=== PATIENT | female | born 1975 | race Caucasian/White ===

== ENCOUNTER 2023-04-03 03:10 | Emergency (ER) | payer OTHER, MEDICAID ==
[~2023-04-03] VITALS: Ht 165.1 cm; Wt 80.0 kg
[~2023-04-03 03:10] MED LIST: NORPTMEDS CO
[2023-04-03 03:59] LABS: Basophils # (auto) 0 10 ^3/uL (0-0.2); Basophils % (auto) 0.3 % (0.0-2.0); Eosinophils # (auto) 0.2 10 ^3/uL (0-0.8); Hematocrit 38.8 % (36.0-46.0); Hemoglobin 13.2 g/dL (12.2-16.2); Lymphocytes # (auto) 2.3 10 ^3/uL (0.4-5.4); Mean Corpuscular Hemoglobin 29.5 pg (28.0-32.0); Mean Corpuscular Hgb Conc. 34.1 g/dL (32.0-36.0); Mean Corpuscular Volume 86.5 fL (80.0-100.0); Monocytes # (auto) 0.6 10 ^3/uL (0-1.3); Monocytes % (auto) 10.6 % (0.0-12.0); Neutrophils # (auto) 2.4 10 ^3/uL (1.6-8.6); Neutrophils % (auto) 44.1 % (37.0-80.0); Nucleated Red Blood Cells % 0.1 %; Red Blood Cells 4.48 10^6/uL (4.0-5.20); White Blood Cell 5.5 10^3/uL (4.4-10.8)
[2023-04-03 04:15] LABS: Alanine Aminotransferase 17 U/L (7-40); Albumin 4.4 g/dL (3.2-4.8); Alkaline Phosphatase 83 U/L (46-116); Anion Gap 6 (5-15); Aspartate Aminotransferase 15 U/L (13-40); BUN/Creatinine Ratio 12.9 (10.0-20.0); Bilirubin, Total 0.3 mg/dL (0.2-1.0); Blood Urea Nitrogen 9 mg/dL (9-23); Calcium 9.4 mg/dL (8.7-10.4); Carbon Dioxide 25 mmol/L (20-30); Chloride 110 mmol/L (98-107); Glucose 100 mg/dL (74-106); Magnesium 1.9 mg/dL (1.6-2.6); Potassium 3.8 mmol/L (3.5-5.1); Sodium 141 mmol/L (136-145)
[2023-04-03 04:16] LABS: Total Protein 7.1 g/dL (5.7-8.2)
[2023-04-03 08:00] VITALS: PULSE 75; RESP 18; O2SAT 99
[2023-04-03 08:05] VITALS: TEMP 97.9
[2023-04-03 08:17] LABS: Urine Bacteria FEW /hpf (None Seen); Urine Blood Negative /uL (Negative); Urine Clarity Clear (Clear); Urine Protein, UAD Negative (Negative); Urine Specific Gravity 1.009 (1.001-1.035); Urine Urobilinogen Normal (Negative); Urine WBC 15 /hpf (0 - 5); Urine pH 7.5 (5.0-8.0)
[2023-04-03 08:18] LABS: Urine Color Straw (Yellow)
[2023-04-03 08:38] LABS: Amphetamine Screen, Urine Neg (NEGATIVE); Barbiturate Scree,Urine Neg (NEGATIVE); Benzodiazephine Screen, Urine Neg (NEGATIVE); Cannabinoid Screen, Urine Neg (NEGATIVE); Cocaine Screen, Urine Neg (NEGATIVE); Opiate Scree,Urine Neg (NEGATIVE); Phencyclidine Screen, Urine Neg (NEGATIVE)
[2023-04-03] MEDS ORDERED: ACETAMINOPHEN 325 MG TAB PO ONE (10:30)
[2023-04-03] MEDS ORDERED: IOHEXOL 350 MG/ML 100ML IJ ONE (13:25)
[2023-04-03 15:10] LABS: INR 1.08 (0.9-1.15); Prothrombin Time 11.3 sec (9.3-11.8)
[2023-04-03] MEDS ORDERED: NAPR-1334 PO (15:47)
[2023-04-03] MEDS ORDERED: NITR-87 PO (15:47)
[2023-04-03 16:00] VITALS: BP 122/86; PULSE 85; RESP 19; O2SAT 99
== END 2023-04-03 17:44 | disposition home or self-care (01) ==
LOC: ER 03:10
DX: E04.1 Nontoxic single thyroid nodule (principal); R10.2 Pelvic and perineal pain; R00.2 Palpitations; R09.1 Pleurisy; F41.9 Anxiety disorder, unspecified; J45.909 Unspecified asthma, uncomplicated; E78.5 Hyperlipidemia, unspecified; Z90.710 Acquired absence of both cervix and uterus; Z90.89 Acquired absence of other organs; Z88.6 Allergy status to analgesic agent; Z88.8 Allergy status to other drugs, medicaments and biological substances
CPT/HCPCS: 36415; 71045; 71275; 80053; 80307; 81001; 83735; 83880; 84484; 84702; 85025; 85379; 85610; 93005; 99285; Q9967